=== PATIENT | male | born 2000 | race Caucasian/White ===

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

== ENCOUNTER 2025-05-24 05:24 | Emergency (ER) | payer OTHER ==
[~2025-05-24] VITALS: Ht 188 cm; Wt 79.4 kg
[2025-05-24 05:39] VITALS: BP 148/68
[2025-05-24] MEDS ORDERED: AMOCLA875 PO (05:42)
== END 2025-05-24 05:50 | disposition home or self-care (01) ==
LOC: ER 05:24
DX: K04.7 Periapical abscess without sinus (principal); Z79.899 Other long term (current) drug therapy
CPT/HCPCS: 99283; A9270